=== PATIENT | female | born 1990 | race Hispanic/Latino ===

== ENCOUNTER 2019-11-16 08:00 | Day surgery (SDC) | payer BC, OTHER ==
[2019-11-16] MEDS ORDERED: Piperacillin/Tazobactam 3.375 GM VIAL ONE (08:40)
[2019-11-16] MEDS ORDERED: Sodium Chloride 0.9% 100 ML ONE (08:40)
[2019-11-16] MEDS ORDERED: Bupivacaine 0.25% HCL 30 ML VIAL ONE (09:26)
[2019-11-16] MEDS ORDERED: Lidocaine 1% w/Epinephrine 1:100K 20 ML VIAL ONE (09:26)
[2019-11-16] MEDS ORDERED: Famotidine/PF 20 mg/2ml Vial ONE (09:55)
[2019-11-16] MEDS ORDERED: Meperidine HCl/PF 25 MG/ML VIAL ONE (09:55)
[2019-11-16] MEDS ORDERED: Fentanyl 100 MCG/2 ML VIAL ONE (09:55)
[2019-11-16] MEDS ORDERED: SUGAMMADEX SODIUM 200 MG/2 ML VIAL ONE (09:55)
[2019-11-16] MEDS ORDERED: Midazolam HCl 2 mg/2 ml Vial ONE (09:55)
[2019-11-16] MEDS ORDERED: Ondansetron HCl/PF 4 MG/2 ML Vial IVP PRN (10:29)
[2019-11-16] MEDS ORDERED: Promethazine HCl 25 MG/ML VIAL SLOW IVP PRN (10:29)
[2019-11-16] MEDS ORDERED: Promethazine HCl 25 MG/ML VIAL IM PRN (10:29)
[2019-11-16] MEDS ORDERED: Meperidine HCl/PF 25 MG/ML VIAL SLOW IVP PRN (10:29)
[2019-11-16] MEDS ORDERED: Dexamethasone 20 MG/5 ML VIAL ONE (10:32)
[2019-11-16] MEDS ORDERED: Succinylcholine Chloride 20 MG/ML 10 ml SYRINGE FS ONE (10:32)
[2019-11-16] MEDS ORDERED: Lidocaine 1% PF 5 ML VIAL ONE (10:32)
[2019-11-16] MEDS ORDERED: Ondansetron PF 4 MG/2 ML Vial ONE (10:32)
[2019-11-16] MEDS ORDERED: Metoclopramide HCl 10 MG/2 ML VIAL ONE (10:32)
[2019-11-16] MEDS ORDERED: Rocuronium Bromide 10 MG/ML (10ML VIAL) ONE (10:32)
[2019-11-16] MEDS ORDERED: PROPOFOL 200 MG/20 ML VIAL ONE (10:32)
[2019-11-16] MEDS ORDERED: Ketorolac Tromethamine 30 MG/ML VIAL ONE (10:32)
--- NOTE | 2019-11-16 14:18 | OP ---
DATE OF PROCEDURE: 11/16/2019 PREOPERATIVE DIAGNOSIS: Acute appendicitis. PROCEDURE PERFORMED: Laparoscopic appendectomy. INDICATIONS: A 29-year-old female with a 24-hour history of periumbilical pain that migrated to the right lower quadrant, associated with nausea and vomiting. CT scan showed appendicitis. FINDINGS: Acute suppurative nonperforated appendicitis. DESCRIPTION OF PROCEDURE: After informed consent was obtained, the patient was taken to the operating room, given general endotracheal anesthesia, placed in supine position. Abdomen was prepped and draped in the usual fashion. Local anesthesia was infiltrated subcutaneously and deep. Subumbilical incision was performed. Subcu divided sharply. The fascia was grasped and 2 stay sutures placed on either side of midline. Midline incised. Digital palpation revealed no local adhesions. A blunt 12-mm trocar inserted. Pneumoperitoneum was created to a pressure of 15 mmHg. A 0-degree laparoscope inserted under direct vision. Two 5-mm ports were placed, one suprapubic and one right lateral abdomen. The appendix was found. The mesoappendix divided with the LigaSure. Base of appendix was divided with a linear 45 mm white load stapler. The appendix placed in an Endosac and removed from the abdomen in the Endosac. Hemostasis was assured. The pelvis was irrigated. Hemostasis was assured. Trocars and retractors removed. The fascia closed with interrupted 0 Vicryl sutures. Skin closed with interrupted 4-0 Rapide. Dermabond applied. The patient tolerated the procedure well, transferred to Recovery in good condition. Sponge and needle count verified correct x2. Job ID: [id number]
== END 2019-11-16 13:02 | disposition home or self-care (01) ==
LOC: SDC 08:00
PROVIDERS: ATTEND Surgery
PROC: 0DTJ4ZZ Resection of Appendix, Percutaneous Endoscopic Approach (ICD-10-PCS; principal; 2019-11-16)
DX: K35.80 Unspecified acute appendicitis (principal)
CPT/HCPCS: 88304; J1100; J1885; J2175; J2250; J2405; J2543; J2704; J2765; J3010; J3490; S0020; S0028